=== PATIENT | male | born 1990 | race Caucasian/White ===

== ENCOUNTER 2021-06-12 11:45 | Emergency (ER) | payer OTHER ==
[~2021-06-12] VITALS: Ht 180.3 cm; Wt 90.0 kg
[2021-06-12] MEDS ORDERED: LIDOCAINE/EPI/TETRACAINE TOPICAL GEL 3 ML. TP ONE ×2 (11:56→12:00)
[2021-06-12 12:00] VITALS: BP 150/81
[2021-06-12] MEDS ORDERED: AMOXICILLIN/K CLAV 875/125MG TABLET. PO ONE (12:00)
--- NOTE | 2021-06-12 12:03 | PHYS DOC ---
Adult General Chief Complaint Chief Complaint: ANIMAL BITE HPI HPI Patient is a 30-year-old male, otherwise healthy who presents with a dog bite to the right hand. States his neighbors dog was fighting with his dog and he began to try to get them apart and got bit in the right hand. Denies any other inj uries. States he is not sure if he is up-to-date on his tetanus vaccinations. States his neighbor say that the dog is up-to-date on shots but did not have any proof. Review of Systems Review of Systems Review of systems otherwise unremarkable except noted in HPI Physical Exam Physical Exam Constitutional: Well developed, well nourished, no acute distress, non-toxic appearance. [] HENT: Normocephalic, atraumatic, Cardiovascular:Heart rate regular rhythm, no murmur [] Lungs & Thorax: Bilateral breath sounds clear to auscultation [] Extremities: 2 cm linear laceration at the base of the second MTP, bleeding controlled. Range of motion intact. Flexion extension normal. Neurovascular exam intact. Neurologic: Alert and oriented X 3, no focal deficits noted. [] Psychologic: Affect normal, mood normal. [] EKG EKG [] Radiology/Procedures Radiology/Procedures [] EXAM: Right hand, 3 views. HISTORY: Dog bite. COMPARISON: None. FINDINGS: 3 views of the right hand are obtained. There is no fracture, dislocation or subluxation. There is no radiodense foreign body. There is soft tissue swelling overlying the dorsal aspect of the metacarpal heads likely due to a laceration. IMPRESSION: No acute osseous finding or radiodense foreign body. Electronically signed by: Joyce Aj MD (06/12/2021 12:16 PM) [id number] 2 cm linear laceration, bleeding controlled. Cleaned extensively with sterile water. L ET placed for topical anesthesia. Cleaned again with sterile water. 3 sutures placed of 4-0 Ethilon suture. Patient tolerated procedure well. Bandaged. Heart Score C/O Chest Pain: No Risk Factors: Risk Factors: DM, Current or recent (<one month) smoker, HTN, HLP, family history of CAD, obesity. Risk Scores: Risk Factors: DM, Current or recent (<one month) smoker, HTN, HLP, family hist ory of CAD, obesity. Course & Med Decision Making Course & Med Decision Making Patient is a 30-year-old male presents with dog bite Vital signs not concerning. Physical exam noted above. Updated tetanus. L ET placed for topical anesthesia. Washed extensively with sterile water. Repaired with suture. Patient tolerated well. Patient stated neighbor had shot records and was able to send them a copy. Patient and family stated they believed her neighbor nursing for this and do not want any tetanus vaccinations. Advised on pain management at home. Advised on wound care. Advised to follow- up with primary care in 5 to 7 days for wound check and suture removal. Gave return cautions to the ED. Discussed with patient and family the need for observation of this animal over the next 5 to 7 days to look for symptoms just to be sure and check daily. Family grateful, verbalized understanding and agreed with plan of discharge. Dragon Disclaimer Dragon Disclaimer This electronic medical record was generated, in whole or in part, using a voice recognition dictation system. Departure Departure: Impression: Primary Impression: Dog bite Disposition: HOME / SELF CARE / HOMELESS Condition: GOOD Referrals: CECELIA BURGER MD Patient Instructions: Animal Bite, Rabies Additional Instructions: Thank you for coming into the emergency department tonight and allowing us to take care of you. Please read all of the attached information above very carefully to go back over things we discussed. Please take all of your antibiotics as prescribed. Please keep the area clean, dry, bandaged and splinted as we discussed to prevent further injury. You need to follow-up with your primary care physician in 5 to 7 days for a wound check and suture removal. As discussed even though you have seen your neighbors dogs shot records and is up-to-date, it would be delatorre to evaluate the dog daily and looking for any strange or abnormal symptoms or even let the animals triple valve tester know but to be sure. Please come back to the emergency department immediately with new or concerning symptoms as discussed. Scripts Amoxicillin/Potassium Clav (AUGMENTIN 875-125 TABLET) 1 Each Tablet 1 TAB PO BID for dog bite for 10 Days, #19 TAB 0 Refills Prov: FAHAD MUNROE MD 06/12/21 FAHAD MUNROE MD Jun 12, 2021 12:03
[2021-06-12] MEDS ORDERED: DIPH,PERTUSS(ACELL),TET VAC/PF 0.5 ML SYRINGE. VAX IM ONE (12:15)
--- NOTE | 2021-06-12 12:19 | RAD ---
EXAM: Right hand, 3 views. HISTORY: Dog bite. COMPARISON: None. FINDINGS: 3 views of the right hand are obtained. There is no fracture, dislocation or subluxation. T here is no radiodense foreign body. There is soft tissue swelling overlying the dorsal aspect of the metacarpal heads likely due to a laceration. IMPRESSION: No acute osseous finding or radiodense foreign body. Electronically signed by: Joyce Aj MD (06/12/2021 12:16 PM) [id number]
[2021-06-12] MEDS ORDERED: AMOX1TAB61 PO (12:32)
== END 2021-06-12 13:09 | disposition home or self-care (01) ==
LOC: ER 11:45
DX: S61.411A Laceration without foreign body of right hand, initial encounter (principal); S61.451A Open bite of right hand, initial encounter; W54.0XXA Bitten by dog, initial encounter; Y93.89 Activity, other specified; Y92.89 Other specified places as the place of occurrence of the external cause; Y99.8 Other external cause status
CPT/HCPCS: 12001; 73130; 90471; 90715; 99283